=== PATIENT | male | born 1955 | race Caucasian/White ===

== ENCOUNTER 2019-09-10 10:23 | Inpatient (IN) ==
[2019-09-10] MEDS ORDERED: SODIUM CHLORIDE 0.9% 500 ML IV SCH (11:00)
[2019-09-10 11:19] LABS: Basophils # (auto) 0.03 K/uL (0-0.2); Basophils % (auto) 0.4 %; Eosinophils # (auto) 0.05 K/uL (0-0.5); Eosinophils % (auto) 0.6 %; Hematocrit (blood only) 37.5 % (42-52); Hemoglobin 11.9 g/dL (14.0-18.0); Immature Granulocytes # (auto) 0.01 K/uL (0.00-0.02); Immature Granulocytes % (auto) 0.1 %; Lymphocytes # (auto) 1.11 K/uL (1.2-3.4); Lymphocytes % (auto) 13.5 %; Mean Corpuscular Hemoglobin 30.6 pg (25-34); Mean Corpuscular Hgb Conc 31.7 g/dL (32-36); Mean Corpuscular Volume 96.4 fL (80-100); Monocytes % (auto) 8.5 %; Neutrophils # (auto) 6.32 K/uL (1.4-6.5); Neutrophils % (auto) 76.9 %; Platelet Count 268 K/uL (130-400); RDW Standard Deviation 45.3 fL (36.4-46.3); Red Blood Count 3.89 M/uL (4.7-6.1); White Blood Count 8.22 K/uL (4.8-10.8)
[2019-09-10 11:35] LABS: Albumin Level 3.1 gm/dl (3.4-5.0); BUN Creatinine Ratio 12.8 (10-20); Calcium 8.8 mg/dl (8.5-10.1); Creatinine Clr Calc Pharmacy 95.7 ml/min; Est GFR (African American) 94.6; Est GFR (Non-African American) 81.6; Magnesium 2.6 mg/dl (1.8-2.4); Potassium 4.4 mmol/L (3.5-5.1)
[2019-09-10 11:45] LABS: Albumin Globulin Ratio 0.8 (0.9-2); Bilirubin,Total 0.6 mg/dl (0.2-1); Thyroid Stimulating Hormone 1.66 uIu/ml (0.300-4.500); Total Protein 7.1 gm/dl (6.4-8.2)
[2019-09-10] MEDS ORDERED: METOPROLOL TARTRATE 1 MG/ML VIAL IV, SCH (12:00)
--- NOTE | 2019-09-10 14:28 | Cardiology Consultation ---
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 Telemetry demonstrates periods of atrial fibrillation with heart rates ranging up to 140 beats per medicine as well as periods of sinus bradycardia with heart rates as low as 38 bpm. Patient is asymptomatic. Discussed pacemaker implantation versus initiation of antiarrhythmic therapy with continued observation at this time. Due to recent CVA, and vascular surgery with fasciotomy, recommend medical therapy with observation overnight. Further recommendations pending clinical response and review of telemetry in a.m. I would not treat patient aggressively with IV AV paddy blocking agents currently as he is asymptomatic. History of Present Illness Reason for Consultation: Atrial fibrillation with rapid ventricular response Requesting Physician: Dr. Del Rosario Attending Physician: Dr. Del Rosario History of Present Illness 64-year-old patient referred to the emergency department due to atrial fibrillation with rapid ventricular response. Patient carries a history of paroxysmal atrial fibrillation dating back to 2018. Due to a chads 2 and a ch ads Vasc score of 0, patient was not treated with anticoagulation. In August 2019, patient suffered an embolic cerebrovascular accident. He was life flighted to [facility] where he underwent cerebral embolectomy. Post procedure a right lower extremity embolic event occurred. He underwent fasciotomy and thrombectomy. On the day of discharge from [facility], cardiology notes report paroxysmal atrial fibrillation with periods of sinus bradycardia. He was prescribed low-dose metoprolol and discharged home. Patient seen and examined the bedside in the emergency department. Telemetry demonstrates atrial fibrillation with rapid ventricular response along with periods of sinus bradycardia with heart rates as low as 38 bpm recorded. He denies any palpitations, lightheadedness, dizziness, syncope, or near syncope. No orthopnea, PND, dyspnea on exertion, or change in functional capacity. Right lower extremity edema noted related to recent fasciotomy. Denies signs/symptoms of GI/ blood loss. Reports word finding issues and expressive aphasia due to cerebrovascular accident. No other focal motor deficits reported. Allergies Allergy/AdvReac Type Severity Reaction Status Date / Time No Known Allergies Allergy Verified 09/10/19 11:45 Home Medications Home Medications Medication Instructions Recorded Confirmed Type apixaban [Eliquis] 5 mg PO BID 09/10/19 09/10/19 History atorvastatin 40 mg PO DAILY 09/10/19 09/10/19 History metoprolol succinate 12.5 mg PO DAILY 09/10/19 09/10/19 History Patient History Medical History (Updated 09/10/19 @ 21:52 by Diego Ram MD) Abnormal chest xray Portable CXR 09/10/19: 7 mm nodular opacity of the right lung apex may reflect pleural-parenchymal scarring versus a pulmonary nodule. H/O: CVA (cerebrovascular accident) Paroxysmal atrial fibrillation Tachycardia-bradycardia syndrome Surgical History (Updated 09/10/19 @ 15:28 by Natacha Robertosn PA-C) History of embolectomy Embolectomy and fasciotomy to RLE. 08/2019 at [facility] [place]. H/O RLE ischemia after L MCA thrombectomy procedure Family History (Updated 09/10/19 @ 15:29 by Natacha Robertson PA-C) Father Coronary heart disease Social History (Updated 09/10/19 @ 15:29 by Natacha Robertson PA-C) Communication Ability: Effective Beliefs That Will Affect Care: None Current Living Situation: Spouse Other Information That Helps Us Care for You: No Feels Safe at Home: Yes Safety Concerns: Feels Safe At This Time Smoking Status: Never smoker Do You Dip or Chew Tobacco: No ; Second Hand Exposure: No ; Tobacco Cessation Education Requested by Patient: No Hx Alcohol Use: Yes ("Occasional beer") Alcohol type: beer Hx Substance Use: No Review of Systems Review of Systems: All systems reviewed & are unremarkable except as noted in HPI & below Physical Exam Constitutional: well developed and well nourished; no acute distress, not ill appearing and not intoxicated appearing Respiratory: normal respiratory effort, lungs clear to auscultation Auscultation: no crackles, no rales, no rhonchi and no wheezes Cardiovascular: Rate/Rhythm: + tachycardic and + irregularly irregular Heart Sounds: normal S1 and normal S2; no murmur Vessels: radial pulses present; no JVD and no carotid bruit Extremities: + edema (Right pedal and ankle edema.) Gastrointestinal (Abdomen): Inspection/Auscultation: abdomen normal to in spection and normal bowel sounds; abdomen not distended Percussion/Palpation: abdomen soft; abdomen nontender, no guarding and abdomen not rigid Musculoskeletal: Extremities: no muscle atrophy and no cyanosis Skin: no rashes, warm and dry Neurologic: moves all extremities Speech / Cognition: + abnormal speech Motor/Sensory: no tremor Psychiatric: A+Ox3, euthymic affect Results & Data ([facility]) Vital Signs (Past 12 Hours) Vital Signs Temp Pulse Resp BP Pulse Ox 09/10/19 13:16 123 H 17 100 09/10/19 13:15 94 H 17 116/83 99 09/10/19 13:00 130 H 17 106/72 99 09/10/19 12:45 100 H 18 115/79 100 09/10/19 12:31 133 H 16 100 09/10/19 12:30 90 16 111/81 100 09/10/19 12:28 115 H 18 95/75 L 99 09/10/19 12:25 129 H 18 96/78 L 100 09/10/19 12:20 130 H 19 105/79 100 09/10/19 12:16 107 H 16 95 09/10/19 12:15 107 H 17 113/82 100 09/10/19 12:10 100 H 17 111/85 100 09/10/19 12:05 100 H 18 105/79 100 09/10/19 12:01 141 H 17 98 09/10/19 12:00 130 H 17 96/69 L 100 09/10/19 11:56 114 H 16 100 09/10/19 11:55 133 H 18 95/78 L 100 09/10/19 11:51 104 H 17 98 09/10/19 11:50 106 H 19 97/71 L 09/10/19 11:46 116 H 18 98 09/10/19 11:45 120 H 17 110/74 100 09/10/19 11:43 103 H 19 110/73 99 09/10/19 11:41 119 H 17 98 09/10/19 11:40 136 H 18 93/77 L 100 09/10/19 11:36 145 H 18 108/77 96 09/10/19 11:35 124 H 18 97 09/10/19 11:34 121 H 18 111/73 100 09/10/19 11:31 106 H 18 98 09/10/19 11:30 116 H 18 94/67 L 88 L 09/10/19 11:25 119 H 17 09/10/19 11:21 115 H 17 98 09/10/19 11:20 112 H 18 93/69 L 99 09/10/19 11:15 150 H 23 97 09/10/19 11:11 75 19 98 09/10/19 11:10 117 H 20 98/71 L 99 09/10/19 11:09 146 H 22 82/70 L 98 09/10/19 11:05 119 H 18 09/10/19 11:01 98 H 18 93 09/10/19 10:51 139 H 19 91/68 L 98 09/10/19 10:40 36.8 C 81 20 97/64 L 92
--- NOTE | 2019-09-10 15:09 | History & Physical Report ---
Date of Service September 10, 2019 Assessment & Plan (1) Paroxysmal atrial fibrillation: (2) Tachycardia-bradycardia syndrome: Pt is 64 y/o M with PMH Left MCA stroke s/p thrombectomy on 08/16/2019 with complications right lower extremity ischemia s/p embolectomy and fasciotomies with open wound with delayed closure, atrial fibrillation on Eliquis presented to ER at referral by Dr. Rosenbaum with cardiology for atrial fibrillation RVR with lower BP in office today. In ER pt noted to be in A-fib RVR with rate up to 130's. Was given 3.5mg lopressor IV and then was noted to have pulse down to the 30's and is asymptomatic. SBPs 90's-100s. Was given 500ml NSS -Cardiology consulted, Dr Del Valle saw pt in ER and recommended admission for further observation and possible consideration of pacemaker implantation vs initiation of antiarrhythmic therapy. Recommended avoiding aggressively treating with IV AV paddy blocking agents currently as he is asymptomatic -EP, Dr De Leon evaluated pt in ER and recommends flecanide 50mg BID and keeping his metoprolol succinate at 12.5mg daily. Recommends observation overnight. Planning on holding on pacemaker at this time secondary to pt's current open wo und to RLE. -Continue Eliquis -Monitor on tele -Resting echo pending -AM labs (3) H/O: CVA (cerebrovascular accident): Left MCA stroke s/p thrombectomy on 08/16/2019 at [facility] [place]. Thought to be embolic secondary to a-fib -Continue Eliquis, atorvastatin -Continue outpatient speech therapy (4) History of embolectomy: (5) Open leg wound: 08/2019 H/O right lower extremity ischemia s/p embolectomy and fasciotomy. Following with [facility] who has recommended delayed closure. Pt with current open wound. Is scheduled to have wound VAC delivered and placed this week. Swelling of right lower extremity since procedure. Area has been packed at home -Wound nurse consult -Continue follow up with plastic surgery DVT Prophylaxis -On Eliquis Full Code as per discussion with pt Follows with Dr Neff for routine care Pt was seen and care coordinated with Dr Ram. See addendum History of Present Illness Chief Complaint: A-fib, referred by cardiology Primary Care Provider: Miki Neff MD Pt is 64 y/o M with PMH Left MCA stroke s/p thrombectomy on 08/16/2019 with complications right lower extremity ischemia s/p embolectomy and fasciotomies with open wound with delayed closure, atrial fibrillation presented to ER at referral by Dr. Rosenbaum with cardiology for atrial fibrillation. Patient was seen in cardiology office today noticed to be in rapid atrial fibrillation with lower BP's and was referred to ER for further work-up. Patient only complains of fatigue today. Denies any palpitations, chest pain, shortness of breath. Patient recent hospitalization in 08/16/[address] [facility] for stroke, and patient noted to have A. fib. During that hospitalization patient was on metoprolol tartrate 25 mg twice daily and was noted to have asymptomatic bradycardia and Borderline hypertension and his dose was decreased to metoprolol tartrate 12.5 twice daily. Patient currently on metoprolol succinate 12.5 mg daily. He had complicated hospital course and after thrombectomy it was noted patient with right lower extremity ischemia and had embolectomy and fasciotomy. Patient with current open wound and is following with plastic surgery [facility] who has recommended delayed closure. Wound VAC is supposed to be placed however patient is awaiting wound VAC arrival and once arrives is to have [facility] nurse place wound VAC. Reports has some swelling of right lower extremity since procedure. Area has been packed at home. Denies red streaking, purulent discharge, fever, chills. Not on any antibiotics currently. After hospital discharge patient was at [facility] for 10 days. Currently patient having speech therapy twice a week. No longer requires PT & OT. Not using any assistive devices and ambulating without difficulty. Eating and drinking without any signs of aspiration. Has some residual intermittent expressive aphasia per pt's . Was discharged on Eliquis, atorvastatin. Denies fever/chills, diaphoresis, N/V/D/C, GALEAS, dizziness, syncope, vision changes, neck pain, CP, SOB, orthopnea, palpitations, cough, sore throat, choking, otalgia, rhinorrhea, abdominal pain, paresthesias, extremity weakness, other rashes, urinary symptoms. In ER pt noted to be in A-fib RVR with rate up to 130's. Was given 3.5mg lopressor IV and then was noted to have pulse down to the 30's and is asymptomatic. Cardiology consulted and admission recommended for further observation. Allergies Allergy/AdvReac Type Severity Reaction Status Date / Time No Known Allergies Allergy Verified 09/10/19 11:45 Home Medications Home Medications Medication Instructions Recorded Confirmed Type apixaban [Eliquis] 5 mg PO BID 09/10/19 09/10/19 History atorvastatin 40 mg PO DAILY 09/10/19 09/10/19 History metoprolol succinate 12.5 mg PO DAILY 09/10/19 09/10/19 History Past Med/Surg History Medical History (Updated 09/10/19 @ 15:28 by Natacha Robertson PA-C) H/O: CVA (cerebrovascular accident) Paroxysmal atrial fibrillation Tachycardia-bradycardia syndrome Surgical History (Updated 09/10/19 @ 15:28 by Natacha Robertson PA-C) History of embolectomy Embolectomy and fasciotomy to RLE. 08/2019 at [facility] [place]. H/O RLE ischemia after L MCA thrombectomy procedure Family History (Updated 09/10/19 @ 15:29 by Natacha Robertson PA-C) Father Coronary heart disease Social History (Updated 09/10/19 @ 15:29 by Natacha Robertson PA-C) Communication Ability: Effective Beliefs That Will Affect Care: None Current Living Situation: Spouse Other Information That Helps Us Care for You: No Feels Safe at Home: Yes Safety Concerns: Feels Safe At This Time Smoking Status: Never smoker Do You Dip or Chew Tobacco: No ; Second Hand Exposure: No ; Tobacco Cessation Education Requested by Patient: No Hx Alcohol Use: Yes ("Occasional beer") Alcohol type: beer Hx Substance Use: No Review of Systems Review of Systems: All systems reviewed & are unremarkable except as noted in HPI & below Physical Exam Physical Exam: General: no distress, WDWN Head: normocephalic, atraumatic Eyes: PERRL, EOM's intact, conjunctiva non-injected, anicteric ENT: normal inspection external ears, nose, mucous membranes moist Neck: supple, trachea midline Lungs: clear, no respiratory distress, no wheezing/rhonchi/rales CV: irregularly irregular, no murmur, no pretibial edema Abd: normal BS, soft, non-tender Ext: no calf tenderness; RLE with dressing in place with some mild surrounding erythema; ROM extremities intact Neuro: A&O x 3, no focal deficits noted, normal affect Skin: warm, dry; see extremity above Results & Data Results & Data ([facility]) Vital Signs (Past 12 Hours) Vital Signs Temp Pulse Resp BP Pulse Ox 09/10/19 14:30 65 17 09/10/19 14:15 48 L 18 107/70 99 09/10/19 14:01 46 L 17 114/66 98 09/10/19 14:00 43 L 17 09/10/19 13:46 97 H 15 100 09/10/19 13:45 111 H 14 95 09/10/19 13:31 117 H 17 98 09/10/19 13:30 95 H 17 115/83 100 09/10/19 13:16 123 H 17 100 09/10/19 13:15 94 H 17 116/83 99 09/10/19 13:00 130 H 17 106/72 99 09/10/19 12:45 100 H 18 115/79 100 09/10/19 12:31 133 H 16 100 09/10/19 12:30 90 16 111/81 100 09/10/19 12:28 115 H 18 95/75 L 99 09/10/19 12:25 129 H 18 96/78 L 100 09/10/19 12:20 130 H 19 105/79 100 09/10/19 12:16 107 H 16 95 09/10/19 12:15 107 H 17 113/82 100 09/10/19 12:10 100 H 17 111/85 100 09/10/19 12:05 100 H 18 105/79 100 09/10/19 12:01 141 H 17 98 09/10/19 12:00 130 H 17 96/69 L 100 09/10/19 11:56 114 H 16 100 09/10/19 11:55 133 H 18 95/78 L 100 09/10/19 11:51 104 H 17 98 09/10/19 11:50 106 H 19 97/71 L 09/10/19 11:46 116 H 18 98 09/10/19 11:45 120 H 17 110/74 100 09/10/19 11:43 103 H 19 110/73 99 09/10/19 11:41 119 H 17 98 09/10/19 11:40 136 H 18 93/77 L 100 09/10/19 11:36 145 H 18 108/77 96 09/10/19 11:35 124 H 18 97 09/10/19 11:34 121 H 18 111/73 100 09/10/19 11:31 106 H 18 98 09/10/19 11:30 116 H 18 94/67 L 88 L 09/10/19 11:25 119 H 17 09/10/19 11:21 115 H 17 98 09/10/19 11:20 112 H 18 93/69 L 99 09/10/19 11:15 150 H 23 97 09/10/19 11:11 75 19 98 09/10/19 11:10 117 H 20 98/71 L 99 09/10/19 11:09 146 H 22 82/70 L 98 09/10/19 11:05 119 H 18 09/10/19 11:01 98 H 18 93 09/10/19 10:51 139 H 19 91/68 L 98 09/10/19 10:40 36.8 C 81 20 97/64 L 92 Laboratory Results Short CBC 09/10/19 Range/Units 11:10 WBC 8.22 (4.8-10.8) K/uL Hgb 11.9 L (14.0-18.0) g/dL Hct 37.5 L (42-52) % Plt Count 268 (130-400) K/uL BMP 09/10/19 11:10 Sodium 140 Potassium 4.4 Chloride 107 Carbon Dioxide 29 BUN 12 Creatinine 0.97 Glucose 102 H Calcium 8.8 Liver Function 09/10/19 Range/Units 11:10 Total Bilirubin 0.6 (0.2-1) mg/dl AST 23 (15-37) U/L ALT 48 (12-78) U/L Alkaline Phosphatase 75 (45-117) U/L Albumin 3.1 L (3.4-5.0) gm/dl Diagnostic Findings CXR: IMPRESSION: 1. Mild cardiomegaly without acute process. 2. 7 mm nodular opacity of the right lung apex may reflect pleural-parenchymal scarring versus a pulmonary nodule. ECG Rate (beats per minute): 121 Rhythm: atrial fibrillation Code Status & VTE Plan VTE Prophylaxis Plan VTE Prophylaxis will be ordered: Yes Supervising Physician Co-Signing Physician Notes HISTORY: Record reviewed. Patient interviewed and examined. Care coordinated with Natacha Robertson PA-C; please refer to her documentation for complete history. Briefly, 64 YO male with history of chronic atrial fibrillation, s/p cardioembolic stroke to left MCA + cardioembolic RLE ischemia 08/16/19. Did not receive thrombolytic therapy due to uncertain time of onset of stroke. Transferred to [facility] where left MCA embolectomy and subsequent RLE embolectomy performed. Required fasciotomies RLE for compartment syndrome and is receiving ongoing wound care under direction of wound clinic at [facility] [place]. RUE weakness resolved, ambulatory, residual expressive aphasia. Seen in Cardiology Clinic today. Noted to be in AF with RVR. Referred to ED. Received metoprolol 2.5 mg IV and became bradycardic in the 30's. EXAM: General- no distress Lungs- clear to auscultation; no respiratory distress Cardiovascular- irregularly irregular; no gallop; no JVD; 1+ pretibial edema RLE, trace pretibial edema LLE; diminished pedal pulses; capillary refill toes < 2 sec Abdomen- + bowel sounds, soft, nontender Extremities- no cyanosis; RLE wounds bandaged Neuro- alert, oriented; mild expressive aphasia; PERRL, EOMI, no facial palsy, upper and lower extr 5/5 bilat Skin- warm & dry DATA: 09/10/19 11:10 09/10/19 11:10 Other lab studies as noted. Chest x-ray reviewed and demonstrated borderline cardiomegaly, no CHF, infiltrates, effusions. 7 mm nodular opacity right lung apex noted by Radiology. EKG performed at 1056 reviewed and demonstrated AF at 120 / minute, no acute ST or T-wave changes. ASSESSMENT AND PLAN: TACHY-RAJWINDER SYNDROME RVR in 130's in clinic; rate dropped to 30's in ED after 2.5 mg IV metoprolol. Metoprolol dose had already been decreased to 12.5 mg daily prior to admission. May eventually need pacemaker, but now not ideal timing because of RLE wounds. Cardiology consulted; initiation of flecainide recommended. Continue anticoagulation with apixaban. Further management per Cardiology. RLE WOUNDS S/P fasciotomies for RLE ischemia due to cardioembolism. Consult Wound Care Nursing. ? RUL PULMONARY NODULE Apparent 7 mm RULE nodular density noted on portable chest x-ray by Radiology, scarring vs pulmonary nodule. Nonsmoker. Consider CT for further characterization. Follow-up / further management per guidelines. Please refer to MARIELA Robertson's documentation for discussion of other issues.
--- NOTE | 2019-09-10 15:20 | XRay Report ---
XR chest 1V portable HISTORY: 64 years-old Male a-fib acute atrial fibrillation COMPARISON: None TECHNIQUE: Portable AP view of the chest FINDINGS: Cardiac silhouette is mildly enlarged. No pneumothorax, pleural effusion, airspace consolidation or o vert pulmonary edema. 7 mm nodular opacity projects over the right lung apex. Bones appear grossly in tact. IMPRESSION: 1. Mild cardiomegaly without acute process. 2. 7 mm nodular opacity of the right lung apex may reflect pleural-parenchymal scarring versus a pulm onary nodule. ACT 112: Negative or not required by law. The above report was generated using voice recognition software. It may contain grammatical, syntax o r spelling errors. Electronically signed by: Osman Forte M.D. 09/10/2019 3:19 PM
[2019-09-10] MEDS ORDERED: ACETAMINOPHEN 325 MG TAB PO PRN (16:45)
[2019-09-10] MEDS: FLECAINIDE ACETATE 100 MG TABLET PO SCH (20:26)
[2019-09-10] MEDS: APIXABAN 5 MG TABLET PO SCH (20:26)
--- NOTE | 2019-09-11 05:57 | Electrocardiogram Report ---
Test Reason : Blood Pressure : / mmHG Vent. Rate : 121 BPM Atrial Rate : 312 BPM P-R Int : 000 ms QRS Dur : 086 ms QT Int : 348 ms P-R-T Axes : 000 049 029 degrees QTc Int : 494 ms Atrial fibrillation with rapid ventricular response Abnormal ECG When compared with ECG of 16-AUG-2019 03:32, ST no longer depressed in Anterolateral leads Confirmed by Eze Etienne ([id number]) on 09/11/2019 5:57:02 AM Referred By: Confirmed By:Eze Etienne
--- NOTE | 2019-09-11 06:22 | Electrocardiogram Report ---
Test Reason : Blood Pressure : / mmHG Vent. Rate : 048 BPM Atrial Rate : 048 BPM P-R Int : 186 ms QRS Dur : 092 ms QT Int : 474 ms P-R-T Axes : 047 023 020 degrees QTc Int : 423 ms Sinus bradycardia with sinus arrhythmia Otherwise normal ECG When compared with ECG of 10-SEP-2019 10:49, Sinus rhythm has replaced Atrial fibrillation Vent. rate has decreased BY 73 BPM Nonspecific T wave abnormality no longer evident in Lateral leads Confirmed by Eze Etienne ([id number]) on 09/11/2019 6:22:22 AM Referred By: Kenny Rosenbaum Confirmed By:Eze Etienne
[2019-09-11 06:46] LABS: Hemoglobin 10.5 g/dL (14.0-18.0); Mean Corpuscular Hemoglobin 29.7 pg (25-34); Mean Corpuscular Hgb Conc 30.9 g/dL (32-36); Mean Platelet Volume 11.2 fL (7.4-10.4); Platelet Count 251 K/uL (130-400); RDW Coefficient of Variation 12.9 % (11.5-14.5); Red Blood Count 3.54 M/uL (4.7-6.1); White Blood Count 4.66 K/uL (4.8-10.8)
[2019-09-11 07:21] LABS: BUN Creatinine Ratio 13.8 (10-20); Calcium 8.5 mg/dl (8.5-10.1); Creatinine Clr Calc Pharmacy 110.5 ml/min; Est GFR (African American) 106.5; Est GFR (Non-African American) 91.9; Magnesium 2.5 mg/dl (1.8-2.4); Potassium 4.1 mmol/L (3.5-5.1)
[2019-09-11] MEDS: FLECAINIDE ACETATE 100 MG TABLET PO SCH (08:06)
[2019-09-11] MEDS: APIXABAN 5 MG TABLET PO SCH (08:06)
[2019-09-11] MEDS ORDERED: METOPROLOL SUCC 25MG EXT REL TAB PO SCH (09:00)
[2019-09-11] MEDS ORDERED: ATORVASTATIN 40 MG TAB PO SCH (09:00)
--- NOTE | 2019-09-11 10:30 | Cardiology Progress Note ---
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 No recurrent atrial fibrillation overnight. Continue flecainide and low-dose beta-jay therapy. Eliquis, 5 mg twice daily will be continued as well. No further inpatient cardiovascular testing or intervention at this time. Outpatient cardiology follow-up in 2 weeks. Patient instructed to contact my office with any lightheadedness, dizziness, syncope, or near syncope. Subjective Patient seen and examined at the bedside. Denies chest pain or unusual shortness of breath. No palpitations overnight. Telemetry reveals sinus rhythm with PACs. Tolerating medications. Offers no complaints at this time. Review of Systems Review of Systems: All systems reviewed & are unremarkable except as noted in HPI & below Physical Exam Constitutional: well developed and well nourished; no acute distress, not ill appearing and not intoxicated appearing Respiratory: normal respiratory effort, lungs clear to auscultation Auscultation: no crackles, no rales, no rhonchi and no wheezes Cardiovascular: Rate/Rhythm: + tachycardic and + irregularly irregular He art Sounds: normal S1 and normal S2; no murmur Vessels: radial pulses present; no JVD and no carotid bruit Extremities: + edema (Right pedal and ankle edema.) Gastrointestinal (Abdomen): Inspection/Auscultation: abdomen normal to inspection and normal bowel sounds; abdomen not distended Percussion/Palpation: abdomen soft; abdomen nontender, no guarding and abdomen not rigid Musculoskeletal: Extremities: no muscle atrophy and no cyanosis Skin: no rashes, warm and dry Neurologic: moves all extremities Speech / Cognition: + abnormal speech Motor/Sensory: no tremor Psychiatric: A+Ox3, euthymic affect Results & Data Vital Signs (Past 12 Hours) Vital Signs Temp Pulse Pulse Pulse Resp BP Pulse Ox 09/11/19 09:14 37.0 C 58 L 19 129/70 97 09/11/19 02:59 36.8 C 98 H 18 123/90 96 09/11/19 00:05 109 H 09/10/19 23:29 36.8 C 62 18 112/73 96
--- NOTE | 2019-09-11 12:40 | Hospitalist Progress Note ---
Date of Service September 11, 2019 Assessment & Plan (1) Paroxysmal atrial fibrillation: (2) Tachycardia-bradycardia syndrome: 1) Paroxysmal atrial fibrillation: (2) Tachycardia-bradycardia syndrome: Pt is 64 y/o M with PMH Left MCA stroke s/p thrombectomy on 08/16/2019 with complications right lower extremity ischemia s/p embolectomy and fasciotomies with open wound with delayed closure, atrial fibrillation on Eliquis presented to ER at referral by Dr. Rosenbaum with cardiology for atrial fibrillation RVR with lower BP in office today. No pacemaker placement until the leg wounds are better and cleared Appreciate cardiology input and recommendation Continue Eliquis Resting echo showed EF of 50 to 55%, LA severely dilated, mild MR, trace TR and Doppler findings suggest pulmonary hypertension. Remains free of symptoms (3) H/O: CVA (cerebrovascular accident): Left MCA stroke s/p thrombectomy on 08/16/2019 at [facility] [place]. Thought to be embolic secondary to a-fib -Continue Eliquis, atorvastatin -Continue outpatient speech therapy (4) History of embolectomy: (5) Open leg wound: 08/2019 H/O right lower extremity ischemia s/p embolectomy and fasciotomy. Following with [facility] [place] who has recommended delayed closure. Pt with current open wound. Is scheduled to have wound VAC delivered and placed this week. Swelling of right lower extremity since procedure. 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: (5) Arterial ischemic stroke, MCA (middle cerebral artery), left, acute: (6) Dyslipidemia, goal LDL below 70: Admission and Anticipated Discharge Date Admission Date: September 10, 2019 Subjective The patient was seen and examined in telemetry unit He was sent in from cardiology office with atrial fibrillation and RVR Only complains of fatigue Denies any palpitation, shortness of breath, chest pain, nausea and vomiting Review of Systems Review of Systems: All systems reviewed and are unremarkable except as noted below Respiratory: no dyspnea and no dyspnea on exertion Cardiovascular: no chest pain and no palpitations Physical Exam 2 Physical Exam: Lying in bed comfortably Constitutional: well developed and well nourished; no acute distress and not ill appearing Eyes: PERRL, conjunctivae normal, anicteric sclerae ENMT: external ear and nose normal, oropharynx normal Neck: trachea midline, no thyromegaly Respiratory: normal respiratory effort; no respiratory distress Auscultation: lungs clear to auscultation bilaterally Cardiovascular: Rate/Rhythm: + irregularly irregular Gastrointestinal (Abdomen): Inspection/Auscultation: abdomen normal to inspection; abdomen not distended Percussion/Palpation: abdomen soft; abdomen nontender Musculoskeletal: No acute arthritis involving any joints. Has right leg wound status post embolectomy and fasciotomies Skin: Open wound at the right lower extremity following surgery for embolectomy/fasciotomies Neurologic: Alert, awake and oriented x3 Results & Data Results & Data ([facility]) Vital Signs (Past 12 Hours) Vital Signs Temp Pulse Pulse Resp BP Pulse Ox 09/11/19 12:12 36.7 C 92 H 19 101/78 98 09/11/19 09:14 37.0 C 58 L 19 129/70 97 09/11/19 02:59 36.8 C 98 H 18 123/90 96 Laboratory Results Short CBC 09/11/19 Range/Units 06:17 WBC 4.66 L (4.8-10.8) K/uL Hgb 10.5 L (14.0-18.0) g/dL Hct 34.0 L (42-52) % Plt Count 251 (130-400) K/uL BMP 09/11/19 06:17 Sodium 143 Potassium 4.1 Chloride 111 H Carbon Dioxide 28 BUN 12 Creatinine 0.84 Glucose 90 Calcium 8.5 Medications Administered Current Inpatient Medications Acetaminophen (Tylenol) 650 mg PO Q4H PRN PRN Reason: Pain or Fever Stop: 10/10/19 16:44 Apixaban (Eliquis) 5 mg PO BID [facility] Stop: 10/10/19 20:59 Last Admin: 09/11/19 08:06 Dose: 5 mg Documented by: Atorvastatin Calcium (Lipitor) 40 mg PO DAILY [facility] Stop: 10/11/19 08:59 Last Admin: 09/11/19 08:07 Dose: 40 mg Documented by: Flecainide Acetate (Tambocor) 50 mg PO Q12 [facility] Stop: 10/10/19 20:59 Last Admin: 09/11/19 08:06 Dose: 50 mg Documented by: Metoprolol Succinate (Toprol Xl) 12.5 mg PO DAILY [facility] Stop: 10/11/19 08:59 Last Admin: 09/11/19 08:07 Dose: 12.5 mg Documented by:
--- NOTE | 2019-09-11 13:57 | Wound Consultation ---
Date of Consultation September 11, 2019 Assessment & Plan (1) Open leg wound: Open right lateral leg wound secondary to embolectomy and fasciotomy due to compartment syndrome. Wound was planned to have secondary delayed closure. Patient was to have a wound VAC applied but ended up admitted with A. fib and RVR and low BP. No debridement was required. Wound culture was obtained. Will await results. We will plan on irrigating wound VAC. Would reevaluate in 4 days. Patient will apply a regular wound VAC at discharge. We will see patient in the clinic to follow-up wound VAC in conjunction with plastic surgery in [place]. Thank you for allow me to participate in the care of this patient. Please not hesitate to call with any questions. History of Present Illness Reason for Consultation: wound vac Attending Physician: Aston Henry MD History of Present Illness This is a 64-year-old male with a past medical history of left MCA stroke status post thrombectomy on 08/16/2019 with complications of right lower extremity ischemia status post embolectomy and fasciotomies with open wound and delayed closure, atrial fibrillation on Eliquis who was admitted with atrial fibrillation with RVR and low BP. Per patient's family he was to have a wound VAC delivered to the home. Has been packing the wound. Sutures were removed from medial aspect of the right leg. There is an area of some drainage distal aspect of the wound. Lateral aspect of the right leg remains open with packing in place. Patient denies fevers or chills. Allergies Allergy/AdvReac Type Severity Reaction Status Date / Time No Known Allergies Allergy Verified 09/10/19 11:45 Home Medications Home Medications Medication Instructions Recorded Confirmed Type apixaban [Eliquis] 5 mg PO BID 09/10/19 09/10/19 History atorvastatin 40 mg PO DAILY 09/10/19 09/10/19 History metoprolol succinate 12.5 mg PO DAILY 09/10/19 09/10/19 History Patient History Medical History (Updated 09/10/19 @ 21:52 by Diego Ram MD) Abnormal chest xray Portable CXR 09/10/19: 7 mm nodular opacity of the right lung apex may reflect pleural-parenchymal scarring versus a pulmonary nodule. H/O: CVA (cerebrovascular accident) Paroxysmal atrial fibrillation Tachycardia-bradycardia syndrome Surgical History (Updated 09/10/19 @ 15:28 by Natacha Robertson PA-C) History of embolectomy Embolectomy and fasciotomy to RLE. 08/2019 at [facility] [place]. H/O RLE ischemia after L MCA thrombectomy procedure Family History (Updated 09/10/19 @ 15:29 by Natacha Robertson PA-C) Father Coronary heart disease Social History (Updated 09/10/19 @ 15:29 by Natacha Robertson PA-C) Communication Ability: Effective Beliefs That Will Affect Care: None Current Living Situation: Spouse Other Information That Helps Us Care for You: No Feels Safe at Home: Yes Safety Concerns: Feels Safe At This Time Smoking Status: Never smoker Do You Dip or Chew Tobacco: No ; Second Hand Exposure: No ; Tobacco Cessation Education Requested by Patient: No Hx Alcohol Use: Yes ("Occasional beer") Alcohol type: beer Hx Substance Use: No Review of Systems Review of Systems: All systems reviewed & are unremarkable except as noted in HPI & below Physical Exam Constitutional: WD/WN, vitals as above Eyes: PERRL, conjunctivae normal, anicteric sclerae ENMT: external ear and nose normal, oropharynx normal Ears: no hearing impairment Skin: Wound 1, right groin measuring 8.5 x 2.2 x 0.3 cm. Wound is covered with fibrin and slough. There is moderate drainage no foul odors. Wound #2, right lower lateral leg measuring 19.2 x 6.5 x 0.4 cm. Wound is covered with good granulation tissue. Periwound is intact without inflammation. There is moderate drainage and no foul odors. Wound #3, right lower medial leg measuring 3.1 x 0.4 x 0.1 cm. Wound is covered with fibrin and slough. Periwound is intact without inflammation. There is moderate drainage and no foul odors. Neurologic: awake; not confused Psychiatric: A+Ox3, euthymic affect Results & Data Vital Signs (Past 12 Hours) Vital Signs Temp Pulse Pulse Resp BP Pulse Ox 09/11/19 12:12 36.7 C 92 H 19 101/78 98 09/11/19 09:14 37.0 C 58 L 19 129/70 97 09/11/19 02:59 36.8 C 98 H 18 123/90 96 PG Care Time/CCT Total # of Minutes Spent Total Time Spent with Patient: Total time spent is greater than 50% in coordination of care (as documented) at patient's floor/unit and/or counseling patient: Coding Level of Care Code 81814 Inpt Consult Level 3 Diagnoses Open leg wound S81.809A
--- NOTE | 2019-09-11 15:08 | Emergency Department Note ---
History of Present Illness General Chief complaint: Cardiac Assessment Stated complaint: AFIB, REF'D BY ENSTOR Source: patient and family Mode of arrival: ambulatory Limitations: no limitations History of Present Illness Provider complaint: Atrial fibrillation Maximum Pain Intensity: 81 This patient is a 64-year-old male who presents to the emergency department with complaints of fairly asymptomatic atrial fibrillation. Patient states 2 weeks ago he was flown to [place] after suffering a stroke. The patient ended up having a complicated course after an interventional procedure. Patient had decreased pulses in the right lower extremity and therefore an angiogram was performed. He apparently had occluded 2 of the lower extremity arteries. Thrombectomy was performed. 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 Patient then underwent fasciotomies of the lower extremity and has an open wound at the right groin. They appear to be healing well. Today patient was evaluated by cardiology in follow-up from the hospitalization. He was found to be in a rapid atrial fibrillation. Patient was sent here for further management. He denies being symptomatic from the atrial fib at this time. He denies chest pain, shortness of breath, fever, co ugh or abdominal discomfort. He states the right lower extremity has been doing well. Home Medications Home Medications Medication Instructions Recorded Confirmed Type apixaban [Eliquis] 5 mg PO BID 09/10/19 09/10/19 History atorvastatin 40 mg PO DAILY 09/10/19 09/10/19 History metoprolol succinate 12.5 mg PO DAILY 09/10/19 09/10/19 History Allergies Allergy/AdvReac Type Severity Reaction Status Date / Time No Known Allergies Allergy Verified 09/10/19 11:45 Past Med/Surg History Medical History Abnormal chest xray Portable CXR 09/10/19: 7 mm nodular opacity of the right lung apex may reflect pleural-parenchymal scarring versus a pulmonary nodule. H/O: CVA (cerebrovascular accident) Paroxysmal atrial fibrillation Tachycardia-bradycardia syndrome Surgical History History of embolectomy Embolectomy and fasciotomy to RLE. 08/2019 at [facility] [place]. H/O RLE ischemia after L MCA thrombectomy procedure Family History Father Coronary heart disease Social History Communication Ability: Effective Beliefs That Will Affect Care: None Current Living Situation: Spouse Other Information That Helps Us Care for You: No Feels Safe at Home: Yes Safety Concerns: Feels Safe At This Time Smoking Status: Never smoker Do You Dip or Chew Tobacco: No ; Second Hand Exposure: No ; Tobacco Cessation Education Requested by Patient: No Hx Alcohol Use: Yes ("Occasional beer") Alcohol type: beer Hx Substance Use: No Review of Systems See HPI for pertinent positives & negatives. and A total of 10 systems reviewed and were otherwise negative Physical Exam Vital signs reviewed. General: Well-appearing 64-year-old male, in no significant distress. HEENT: No scleral icterus, PERRLA, neck supple. Atraumatic. Cardiovascular: Tachycardic and irregular Pulmonary: Clear to auscultation bilaterally, normal work of breathing. Abdomen: Soft, nontender, nondistended, positive bowel sounds. Musculoskeletal: Right lower extremity with large bandages in place over a medial and lateral incision site. Neurologic: Patient awake alert and oriented x 3 Skin: Warm, dry, no rash. Right inguinal region with a 3 to 4 cm open wound that appears to be healing well. Course Administered Medications Apixaban (Eliquis) 5 mg PO BID [facility] Stop: 10/10/19 20:59 Last Admin: 09/11/19 08:06 Dose: 5 mg Documented by: [id number] Admin: 09/10/19 20:26 Dose: 5 mg Documented by: [id number] Atorvastatin Calcium (Lipitor) 40 mg PO DAILY [facility] Stop: 10/11/19 08:59 Last Admin: 09/11/19 08:07 Dose: 40 mg Documented by: [id number] Flecainide Acetate (Tambocor) 50 mg PO Q12 [facility] Stop: 10/10/19 20:59 Last Admin: 09/11/19 08:06 Dose: 50 mg Documented by: [id number] Admin: 09/10/19 20:26 Dose: 50 mg Documented by: [id number] Metoprolol Succinate (Toprol Xl) 12.5 mg PO DAILY [facility] Stop: 10/11/19 08:59 Last Admin: 09/11/19 08:07 Dose: 12.5 mg Documented by: [id number] Discontinued Medications Sodium Chloride (Nss) 500 mls @ 999 mls/hr IV .Q31M [facility] Stop: 09/10/19 11:30 Last Infusion: 09/10/19 11:45 Dose: 0 mls/hr Documented by: [id number] Admin: 09/10/19 11:10 Dose: 999 mls/hr Documented by: [id number] Metoprolol Tartrate (Lopressor) 5 mg IV, Q4 [facility] Stop: 10/10/19 11:59 Last Admin: 09/10/19 12:00 Dose: 3.5 mg Documented by: [id number] Medical Decision Making Differential Diagnosis The differential diagnosis of this patient's presentation includes ACS, metabolic derangement, paroxysmal atrial fibrillation, PE, infectious or septic etiology. Medical Records Attestation: I reviewed the patient's medical records. Home Medications Current Medication List: was personally reviewed by me Laboratory Data Attestation: I reviewed the patient's lab results. Result diagrams: 09/11/19 06:17 09/11/19 06:17 Lab Results 09/10/19 09/10/19 Range/Units 11:10 11:10 WBC 8.22 (4.8-10.8) K/uL RBC 3.89 L (4.7-6.1) M/uL Hgb 11.9 L (14.0-18.0) g/dL Hct 37.5 L (42-52) % MCV 96.4 (80-100) fL MCH 30.6 (25-34) pg MCHC 31.7 L (32-36) g/dL RDW Std Deviation 45.3 (36.4-46.3) fL RDW Coeff of Royer 13.0 (11.5-14.5) % Plt Count 268 (130-400) K/uL MPV 11.0 H (7.4-10.4) fL Immature Gran % (Auto) 0.1 % Neut % (Auto) 76.9 % Lymph % (Auto) 13.5 % [place] % (Auto) 8.5 % Eos % (Auto) 0.6 % Baso % (Auto) 0.4 % Neut # (Auto) 6.32 (1.4-6.5) K/uL Lymph # (Auto) 1.11 L (1.2-3.4) K/uL [place] # (Auto) 0.70 H (0.11-0.59) K/uL Eos # (Auto) 0.05 (0-0.5) K/uL Baso # (Auto) 0.03 (0-0.2) K/uL Immature Gran # (Auto) 0.01 (0.00-0.02) K/uL Sodium 140 (136-145) mmol/L Potassium 4.4 (3.5-5.1) mmol/L Chloride 107 (98-107) mmol/L Carbon Dioxide 29 (21-32) mmol/L Anion Gap 4.0 (3-11) BUN 12 (7-18) mg/dl Creatinine 0.97 (0.6-1.4) mg/dl Est Cr Clr Drug Dosing 95.7 ml/min Est GFR ( Amer) 94.6 Est GFR (Non-Af Amer) 81.6 BUN/Creatinine Ratio 12.8 (10-20) Glucose 102 H (70-99) mg/dl Calcium 8.8 (8.5-10.1) mg/dl Magnesium 2.6 H (1.8-2.4) mg/dl Total Bilirubin 0.6 (0.2-1) mg/dl AST 23 (15-37) U/L ALT 48 (12-78) U/L Alkaline Phosphatase 75 (45-117) U/L Total Protein 7.1 (6.4-8.2) gm/dl Albumin 3.1 L (3.4-5.0) gm/dl Globulin 4.0 (2.5-4.0) gm/dl Albumin/Globulin Ratio 0.8 L (0.9-2) TSH 1.660 (0.300-4.500) uIu/ml Imaging Data Radiologist's Impression: XR chest 1V portable HISTORY: 64 years-old Male a-fib acute atrial fibrillation COMPARISON: None TECHNIQUE: Portable AP view of the chest FINDINGS: Cardiac silhouette is mildly enlarged. No pneumothorax, pleural effusion, airspace consolidation or overt pulmonary edema. 7 mm nodular opacity projects over the right lung apex. Bones appear grossly intact. IMPRESSION: 1. Mild cardiomegaly without acute process. 2. 7 mm nodular opacity of the right lung apex may reflect pleural-parenchymal scarring versus a pulmonary nodule. ACT 112: Negative or not required by law. The above report was generated using voice recognition software. It may contain grammatical, syntax or spelling errors. Electronically signed by: Osman Forte M.D. 09/10/2019 3:19 PM Dictated: 09/10/191516 Transcribed: 09/10/191516 ECG Data Attestation: I personally reviewed and interpreted this ECG as follows: Indication: + tachycardia Rate (beats per minute): 121 Rhythm: + atrial fibrillation ECG Intervals/blocks: + Prolonged QT (494) ECG [place]: + Normal ECG Findings: no PACs and no PVCs Blood Pressure Blood Pressure Findings: Low blood pressure Blood Pressure Disposition: further management by hospitalist MDM Narrative This patient was evaluated and appeared to be in no significant distress. IV access was obtained and laboratory work was drawn. An order for cardiac monitoring was placed and the patient was found to be in atrial fibrillation with RVR. Patient was given normal saline solution bolus, total of 500 mL due to an initial hypotension. IV metoprolol was ordered for tachycardia. Patient received 3.5 mg of IV metoprolol because he had a period of bradycardia down into the high 30s. Nursing stopped the administration of 5 mg of Lopressor. Patient did have some return to rapid atrial fibrillation with periodic episodes of bradycardia. Patient's laboratory work is fairly reassuring. Dr. Del Valle of cardiology did arrive in the emergency department for consultation. He recommended no further beta-jay therapy due to the bradycardic episodes and the fact that the patient is stable. Patient's case was discussed with the hospitalist service will evaluate the patient for admission and further manag ement. Impression & Plan Atrial fibrillation with RVR, Tachycardia-bradycardia syndrome Discharge Plan Visit Data *Final* Discharge Date/Time: 09/10/19 15:42 Chief Complaint: Cardiac Assessment Stated Complaint: AFIB, REF'D BY NESTOR ED Provider: Mya Garland Discharge Problem: Atrial fibrillation with RVR, Tachycardia-bradycardia syndrome Patient Disposition: Admitted As Inpatient Discharge Instructions Interventions: ED Discharge Assessment Last Done: 09/10/19 15:42
--- NOTE | 2019-09-12 04:46 | Electrocardiogram Report ---
Test Reason : Blood Pressure : / mmHG Vent. Rate : 059 BPM Atrial Rate : 059 BPM P-R Int : 186 ms QRS Dur : 098 ms QT Int : 478 ms P-R-T Axes : 070 050 051 degrees QTc Int : 473 ms Sinus bradycardia with Premature atrial complexes in a pattern of bigeminy Otherwise normal ECG When compared with ECG of 10-SEP-2019 14:26, Premature atrial complexes are now Present Confirmed by Eze Etienne ([id number]) on 09/12/2019 4:46:10 AM Referred By: Kenny Rosenbaum Confirmed By:Eze Etienne
--- NOTE | 2019-09-12 07:34 | Discharge Summary ---
Date of Service September 12, 2019 Admission HPI Per Admitting Provider Pt is 64 y/o M with PMH Left MCA stroke s/p thrombectomy on 08/16/2019 with complications right lower extremity ischemia s/p embolectomy and fasciotomies with open wound with delayed closure, atrial fibrillation presented to ER at referral by Dr. Rosenbaum with cardiology for atrial fibrillation. Patient was seen in cardiology office today noticed to be in rapid atrial fibrillation with lower BP's and was referred to ER for further work-up. Patient only complains of fatigue today. Denies any palpitations, chest pain, shortness of breath. Patient recent hospitalization in 08/16/2019 at [facility] for stro , and patient noted to have A. fib. During that hospitalization patient was on metoprolol tartrate 25 mg twice daily and was noted to have asymptomatic bradycardia and Borderline hypertension and his dose was decreased to metoprolol tartrate 12.5 twice daily. Patient currently on metoprolol succinate 12.5 mg daily. He had complicated hospital course and after thrombectomy it was noted patient with right lower extremity ischemia and had embolectomy and fasciotomy. Patient with current open wound and is following with plastic surgery [facility] who has recommended delayed closure. Wound VAC is supposed to be placed however patient is awaiting wound VAC arrival and once arrives is to have [facility] wound VAC. Reports has some swelling of right lower extremity since . Area has been packed at home. Denies red streaking, purulent discharge, fever, chills. Not on any antibiotics currently. After hospital discharge patient was at [facility] for 10 days. Currently patient having speech therapy twice a week. No longer requires PT & OT. Not using any assistive devices and ambulating without difficulty. Eating and drinking without any signs of aspiration. Has some residual intermittent expressive aphasia per pt's . Was discharged on Eliquis, atorvastatin. Denies fever/chills, diaphoresis, N/V/D/C, GALEAS, dizziness, syncope, vision changes, neck pain, CP, SOB, orthopnea, palpitations, cough, sore throat, choking, otalgia, rhinorrhea, abdominal pain, paresthesias, extremity weakness, other rashes, urinary symptoms. In ER pt noted to be in A-fib RVR with rate up to 130's. Was given 3.5mg lopressor IV and then was noted to have pulse down to the 30's and is asymptomatic. Cardiology consulted and admission recommended for further observation. Admission Exam Per Admitting Provider Physical Exam: General: no distress, WDWN Head: normocephalic, atraumatic Eyes: PERRL, EOM's intact, conjunctiva non-injected, anicteric ENT: normal inspection external ears, nose, mucous membranes moist Neck: supple, trachea midline Lungs: clear, no respiratory distress, no wheezing/rhonchi/rales CV: irregularly irregular, no murmur, no pretibial edema Abd: normal BS, soft, non-tender Ext: no calf tenderness; RLE with dressing in place with some mild surrounding erythema; ROM extremities intact Neuro: A&O x 3, no focal deficits noted, normal affect Skin: warm, dry; see extremity above Principal Diagnosis Paroxysmal atrial fibrillation, tachybradycardia syndrome, history of left MCA stroke status post thrombectomy on 08/16/2019 at [facility]. Open left leg wound secondary to fasciotomy and embolectomy Discharge Exam Constitutional well developed and well nourished; no acute distress and not ill appearing Eyes PERRL, conjunctivae normal, anicteric sclerae ENMT external ear and nose normal, oropharynx normal Neck trachea midline, no thyromegaly Respiratory normal respiratory effort; no respiratory distress Auscultation: lungs clear to auscultation bilaterally Cardiovascular Rate/Rhythm: + irregularly irregular Gastrointestinal (Abdomen) Inspection/Auscultation: abdomen normal to inspection; abdomen not distended Percussion/Palpation: abdomen soft; abdomen nontender Discharge Data Allergies Allergy/AdvReac Type Severity Reaction Status Date / Time No Known Allergies Allergy Verified 09/10/19 11:45 Consultations 09/10/19 13:44 ED Decision to Admit Stat 09/10/19 16:45 Consult Cardiology Routine Procedures Performed Operation Date: 09/11/19 08:30 <No data on this case meets the specified criteria> Hospital Course (1) Paroxysmal atrial fibrillation: (2) Tachycardia-bradycardia syndrome: 1) Paroxysmal atrial fibrillation: (2) Tachycardia-bradycardia syndrome: Pt is 64 y/o M with PMH Left MCA stroke s/p thrombectomy on 08/16/2019 with complications right lower extremity ischemia s/p embolectomy and fasciotomies with open wound with delayed closure, atrial fibrillation on Eliquis presented to ER at referral by Dr. Rosenbaum with cardiology for atrial fibrillation RVR with lower BP in office today. No pacemaker placement until the leg wounds are better and cleared Appreciate cardiology input and recommendation Continue Eliquis Resting echo showed EF of 50 to 55%, LA severely dilated, mild MR, trace TR and Doppler findings suggest pulmonary hypertension. Remains free of symptoms (3) H/O: CVA (cerebrovascular accident): Left MCA stroke s/p thrombectomy on 08/16/2019 at [facility]. Thought to be embolic secondary to a-fib -Continue Eliquis, atorvastatin -Continue outpatient speech therapy (4) History of embolectomy: (5) Open leg wound: 08/2019 H/O right lower extremity ischemia s/p embolectomy and fasciotomy. Following with [facility] who has recommended delayed closure. Pt with current open wound. Is scheduled to have wound VAC delivered and placed this week. Swelling of right lower extremity since procedure. Area has been packed at home -Wound nurse consult -Continue follow up with plastic surgery -Patient will needs to be seen by the wound care team and get the appropriate instructions about dressing changed before being discharged to the RU PULMONARY NODULE Apparent 7 mm RULE nodular density noted on portable chest x-ray by Radiology, scarring vs pulmonary nodule. Nonsmoker. Consider CT for further characterization. Follow-up / further management per guidelines. DVT Prophylaxis -On Eliquis Full Code as per discussion with pt Follows with Dr Neff for routine care (3) H/O: CVA (cerebrovascular accident): Left MCA stroke s/p thrombectomy on 08/16/2019 at [facility]. 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 Open left leg wound secondary to fasciotomy and embolectomy Condition on Discharge: Fair Activity: Resume your previous activity Non-emergency contact: Primary Care Provider Call non-emergency contact if: you have any medication questions and your symptoms worsen Follow-up/Referrals: Miki Neff MD [Primary Care Provider] - (Your doctor's office will call with an appointment within 7 days Please keep your appointment with skoog operator as advised) Diet: Heart Healthy Addtl Attending Provider Instructions: Please take precaution to avoid fall Continue to have wound care as advised Pending Studies at Discharge: No Stand-Alone Forms: [facility], Smoking Cessation Medications and DC Order Prescriptions: New flecainide 100 mg Tablet 50 mg PO Q12 30 Days Qty: 30 RF: 0 Continued atorvastatin 40 mg tablet 40 mg PO DAILY RF: 0 metoprolol succinate 25 mg tablet extended release 24 hr 12.5 mg PO DAILY RF: 0 Eliquis 5 mg Tablet 5 mg PO BID RF: 0 Discharge Orders: Discharge Order (Routine); Ordered 09/11/19 Ordered By: Aston Henry Admission Data Admit Date/Time: 09/10/19 14:59 Attending Provider: Aston Henry Admit Provider: Diego Ram Primary Care Provider: Miki Neff Other Providers: Jayden Del Rosario ; Brian Del Valle Other Interventions: Discharge Summary Assessment (RN) Last Done: 09/11/19 15:56 DC Date/Time DO NOT enter until pt leaves facility: 09/11/19 16:38 Supervising Physician Co-Signing Physician Notes HISTORY: Record reviewed. Patient interviewed and examined. Care coordinated with Natacha Robertson PA-C; please refer to her documentation for complete history. Briefly, 64 YO male with history of chronic atrial fibrillation, s/p cardioembolic stroke to left MCA + cardioembolic RLE ischemia 08/16/19. Did not receive thrombolytic therapy due to uncertain time of onset of stroke. Transferred to [facility] where left MCA embolectomy and subsequent RLE embolectomy performed. Required fasciotomies RLE for compartment syndrome and is receiving ongoing wound care under direction of wound clinic at [facility]. RUE weakness resolved, ambulatory, residual expressive aphasia. Seen in Cardiology Clinic today. Noted to be in AF with RVR. Referred to ED. Received metoprolol 2.5 mg IV and became bradycardic in the 30's. EXAM: General- no distress Lungs- clear to auscultation; no respiratory distress Cardiovascular- irregularly irregular; no gallop; no JVD; 1+ pretibial edema RLE, trace pretibial edema LLE; diminished pedal pulses; capillary refill toes < 2 sec Abdomen- + bowel sounds, soft, nontender Extremities- no cyanosis; RLE wounds bandaged Neuro- alert, oriented; mild expressive aphasia; PERRL, EOMI, no facial palsy, upper and lower extr 5/5 bilat Skin- warm & dry DATA: 09/10/19 11:10 09/10/19 11:10 Other lab studies as noted. Chest x-ray reviewed and demonstrated borderline cardiomegaly, no CHF, infilt rates, effusions. 7 mm nodular opacity right lung apex noted by Radiology. EKG performed at 1056 reviewed and demonstrated AF at 120 / minute, no acute ST or T-wave changes. ASSESSMENT AND PLAN: TACHY-RAJWINDER SYNDROME RVR in 130's in clinic; rate dropped to 30's in ED after 2.5 mg IV metoprolol. Metoprolol dose had already been decreased to 12.5 mg daily prior to admission. May eventually need pacemaker, but now not ideal timing because of RLE wounds. Cardiology consulted; initiation of flecainide recommended. Continue anticoagulation with apixaban. Further management per Cardiology. RLE WOUNDS S/P fasciotomies for RLE ischemia due to cardioembolism. Consult Wound Care Nursing. ? RUL PULMONARY NODULE Apparent 7 mm RULE nodular density noted on portable chest x-ray by Radiology, scarring vs pulmonary nodule. Nonsmoker. Consider CT for further characterization. Follow-up / further management per guidelines. Please refer to MARIELA Robertson's documentation for discussion of other issues.
== END 2019-09-11 16:38 | disposition home health service (06) | DRG 310 ==
LOC: ED 10:23 → 2E 14:59 → SUATTDRO 14:59 → 2E 15:42